=== PATIENT | female | born 1975 | race Caucasian/White ===

== ENCOUNTER 2016-11-22 21:48 | Emergency (ER) | payer BC, OTHER ==
[~2016-11-22] VITALS: Ht 160 cm; Wt 80.0 kg
[2016-11-22 21:58] VITALS: BP 138/74; PULSE 96; RESP 16; TEMP 98.1; O2SAT 96
[2016-11-22 22:35] LABS: AUTOMATED NEUTROPHIL # 3.9 TH/MM3 (1.8-7.7); BASOPHIL % 0.6 % (0.0-2.0); EOSINOPHIL # 0.1 TH/MM3 (0-0.4); EOSINOPHIL % 1.5 % (0.0-4.0); HEMATOCRIT 38.8 % (35.0-46.0); HEMO FLAGS DIFF FINAL; LYMPH % 33.1 % (9.0-44.0); LYMPHOCYTE # 2.2 TH/MM3 (1.0-4.8); MEAN CELL VOLUME 87.8 FL (80.0-100.0); MEAN CORPUSCULAR HEMOGLOBIN 29.1 PG (27.0-34.0); MEAN CORPUSCULAR HGB CONC 33.1 % (32.0-36.0); MONO % 4.9 % (0.0-8.0); NEUT % 59.9 % (16.0-70.0); PLATELET COUNT 228 TH/MM3 (150-450); RED BLOOD COUNT 4.42 MIL/MM3 (4.00-5.30); WHITE BLOOD COUNT 6.5 TH/MM3 (4.0-11.0)
[2016-11-22 22:51] LABS: ALT (GPT) 29 U/L (10-53); ANION GAP 8 MEQ/L (5-15); AST (GOT) 22 U/L (15-37); BICARBONATE 23.8 MEQ/L (21.0-32.0); BLOOD UREA NITROGEN 9 MG/DL (7-18); CHLORIDE 106 MEQ/L (98-107); GLOMERULAR FILTRATION RATE 79 ML/MIN (>89); SODIUM (NA) 138 MEQ/L (136-145)
[2016-11-22 22:52] LABS: ALKALINE PHOSPHATASE 52 U/L (45-117); TOTAL BILIRUBIN ADULT 0.3 MG/DL (0.2-1.0)
[2016-11-22 23:15] LABS: AMPHETAMINE, URINE NEG (NEG); BARBITURATES, URINE NEG (NEG); COCAINE, URINE NEG (NEG)
[2016-11-23] MEDS ORDERED: LORazepam 2 MG/ML VIAL IV PUSH PRN ×4
[2016-11-23] MEDS ORDERED: LORazepam 2 MG TAB PO PRN
[2016-11-23] MEDS ORDERED: LORazepam 1 MG TAB PO PRN
[2016-11-23] MEDS ORDERED: IOHEXOL 350 MG/ML 10 ML VIAL (for RAD DIAG) IV ONE (00:30)
--- NOTE | 2016-11-23 00:44 | PD ---
HPI Chief Complaint: Psychiatric Symptoms Time Seen by Provider: 22:49 Travel History International Travel<30 days: No Contact w/Intl Traveler<30days: No Traveled to known affect area: No History of Present Illness HPI Patient is a 41-year-old female presents on Araujo act. According to the Araujo act the patient's roommate noticed that the patient had a cord around her neck and was threatening to hang herself. Unfortunately was called and she was placed under Araujo act. According to the patient she states that her roommate/ girlfriend is bipolar and that she's crazy" the patient is fairly poor insight as to why she is here in the first place. She states that she was not going to harm herself. She states she has a history of chronic pain and rather than take pain medicine she likes to drink. She is visibly intoxicated tonight. She has no physical complaints currently. Denies any chest pain neck pain neck pain headache abdominal pain nausea vomiting or diarrhea. PFSH Past Medical History Anxiety: Yes Depression: Yes Diabetes: No Diminished Hearing: No Psychiatric: Yes (PTSD, ANXIETY D/O, PANIC ATTACKS.) Seizures: No LMP: 11/21/16 : 2 Para: 0 Miscarriage: 2 Ovarian Cysts: Yes Social History Alcohol Use: Yes (INTOXICATED TONIGHT 11/05/15) Tobacco Use: Yes Substance Use: Yes (MARIJUANA) Allergies-Medications (Allergen,Severity, Reaction): Coded Allergies: Codeine (Verified Allergy, Intermediate, 10/01/15) Reported Meds & Prescriptions Reported Meds & Active Scripts Active No Active Prescriptions or Reported Medications Review of Systems Except as stated in HPI: all other systems reviewed are Neg Physical Exam Narrative GENERAL: Well-developed well-nourished no apparent distress, visibly intoxicated. SKIN: Patient has what appears to be a very small bruise in the anterior part of her neck could be consistent with a ligature ashley however is nonspecific. HEAD: Atraumatic. Normocephalic. EYES: Pupils equal and round. No scleral icterus. No injection or drainage. ENT: No nasal bleeding or discharge. Mucous membranes pink and moist. NECK: Trachea midline. No JVD. CARDIOVASCULAR: Regular rate and rhythm. No murmur appreciated. RESPIRATORY: No accessory muscle use. Clear to auscultation. Breath sounds equal bilaterally. GASTROINTESTINAL: Abdomen soft, non-tender, nondistended. Hepatic and splenic margins not palpable. MUSCULOSKELETAL: No obvious deformities. No clubbing. No cyanosis. No edema. NEUROLOGICAL: Awake and alert. No obvious cranial nerve deficits. Motor grossly within normal limits. Normal speech. PSYCHIATRIC: Appears intoxicated, normal mood, angry affect. Poor insight and poor judgment. Denies suicidal ideation. Data Data Last Documented VS Vital Signs Date Time Temp Pulse Resp B/P Pulse Ox O2 Delivery O2 Flow Rate FiO2 11/22/16 21:58 98.1 96 16 138/74 96 Orders Complete Blood Count With Diff (11/22/16 22:10) Comprehensive Metabolic Panel (11/22/16 22:10) Psych Screen (11/22/16 22:10) Drug Screen, Random Urine (11/22/16 22:10) Salicylates (Aspirin) (11/22/16 22:10) Ed Urine Pregnancytest Poc (11/22/16 22:39) Alcohol (Ethanol) (11/22/16 22:47) Alcohol Withdrawal Asmt-Ciwa ONCE (11/22/16 23:46) Lorazepam (Ativan) (11/23/16 00:00) Lorazepam Inj (Ativan Inj) (11/23/16 00:00) Lorazepam (Ativan) (11/23/16 00:00) Lorazepam Inj (Ativan Inj) (11/23/16 00:00) Lorazepam Inj (Ativan Inj) (11/23/16 00:00) Lorazepam Inj (Ativan Inj) (11/23/16 00:00) Ct Soft Tiss Neck W Iv Cont (11/23/16 ) Iohexol 350 Inj (Omnipaque 350 Inj) (11/23/16 00:30) Labs Laboratory Tests Test 11/22/16 11/22/16 22:20 23:00 White Blood Count 6.5 TH/MM3 Red Blood Count 4.42 MIL/MM3 Hemoglobin 12.9 GM/DL Hematocrit 38.8 % Mean Corpuscular Volume 87.8 FL Mean Corpuscular Hemoglobin 29.1 PG Mean Corpuscular Hemoglobin 33.1 % Concent Red Cell Distribution Width 14.0 % Platelet Count 228 TH/MM3 Mean Platelet Volume 8.7 FL Neutrophils (%) (Auto) 59.9 % Lymphocytes (%) (Auto) 33.1 % Monocytes (%) (Auto) 4.9 % Eosinophils (%) (Auto) 1.5 % Basophils (%) (Auto) 0.6 % Neutrophils # (Auto) 3.9 TH/MM3 Lymphocytes # (Auto) 2.2 TH/MM3 Monocytes # (Auto) 0.3 TH/MM3 Eosinophils # (Auto) 0.1 TH/MM3 Basophils # (Auto) 0.0 TH/MM3 CBC Comment DIFF FINAL Differential Comment Sodium Level 138 MEQ/L Potassium Level 4.0 MEQ/L Chloride Level 106 MEQ/L Carbon Dioxide Level 23.8 MEQ/L Anion Gap 8 MEQ/L Blood Urea Nitrogen 9 MG/DL Creatinine 0.80 MG/DL Estimat Glomerular Filtration 79 ML/MIN Rate Random Glucose 92 MG/DL Calcium Level 7.9 MG/DL Total Bilirubin 0.3 MG/DL Aspartate Amino Transf 22 U/L (AST/SGOT) Alanine Aminotransferase 29 U/L (ALT/SGPT) Alkaline Phosphatase 52 U/L Total Protein 7.3 GM/DL Albumin 3.9 GM/DL Salicylates Level 2.9 MG/DL Ethyl Alcohol Level 281 MG/DL Urine Opiates Screen NEG Urine Barbiturates Screen NEG Urine Amphetamines Screen NEG Urine Benzodiazepines Screen NEG Urine Cocaine Screen NEG Urine Cannabinoids Screen NEG MDM Medical Decision Making Medical Screen Exam Complete: Yes Emergency Medical Condition: Yes Differential Diagnosis Soft tissue neck injury, strangulation unlikely, asphyxiation unlikely, suicidal ideation, adjustment disorder, alcohol intoxication Narrative Course Patient was roomed in emergency department, she is clearly intoxicated she is redirectable. She does have a small ashley on the anterior part of her neck which could be consistent with a small ligature ashley. CT soft tissue neck was obtained which is within normal limits. She is at this point medically cleared for psychiatric evaluation and disposition. She will protocol has been ordered. She is under Araujo act by law enforcement. Diagnosis Primary Impression: Intentional self-harm by strangulation Additional Impression: Alcohol intoxication Scripts No Active Prescriptions or Reported Meds Condition: Jose Kerr MD November 23, 2016 00:44
--- NOTE | 2016-11-23 00:46 | RADRPT ---
EXAM DATE/TIME: 11/23/2016 00:03 [facility] COMPARISON: No previous studies available for comparison. INDICATIONS : Attempted hanging. IV CONTRAST: 68 ccIV RADIATION DOSE: 18.92 CTDIvol (mGy) MEDICAL HISTORY : None SURGICAL HISTORY : None. ENCOUNTER: Initial ACUITY: 1 day PAIN SCALE: 8/10 LOCATION: neck TECHNIQUE: Volumetric scanning of the neck was performed. Using automated exposure control and adjustment of th e mA and/or kV according to patient size, radiation dose was kept as low as reasonably achievable to obtain optimal diagnostic quality images. FINDINGS: NASOPHARYNX: The nasopharyngeal airway has a normal configuration. No mucosal thickening or mass is seen. OROPHARYNX: The intrinsic muscles of the tongue are symmetric. The tonsillar pillars are intact. The prevertebr al soft tissues are not thickened. LARYNX: The supraglottic, glottic, and infraglottic structures are intact. PARAPHARYNGEAL: The parapharyngeal space is intact. SALIVARY GLANDS: The parotid and submandibular glands are intact. LYMPH NODES: No enlarged or necrotic-appearing nodes. THYROID: Homogeneous enhancement without evidence of nodule. BONES: Unremarkable. CONCLUSION: 1. Unremarkable CT scan of the neck. No masses are identified. Antolin Conway MD on November 23, 2016 at 0:42 Board Certified Radiologist. This report was verified electronically.
[2016-11-23 02:00] VITALS: BP 105/50; PULSE 97; RESP 18; O2SAT 95
[2016-11-23 06:19] VITALS: BP 120/66; PULSE 79; RESP 18; O2SAT 97
[2016-11-23] MEDS ORDERED: ACETAMINOPHEN 325 MG TAB PO ONE (08:00)
[2016-11-23 08:52] VITALS: BP 122/66; PULSE 79; RESP 18; O2SAT 97
--- NOTE | 2016-11-23 12:05 | PD.CONS ---
Provisional Diagnosis Admission Date [place] I. Alcohol induced disorder, alcohol use disorder, PTSD, Anxiety [place] II. Borderline personality disorder [place] III. Shoulder Pain History of Present Illness Service Psychiatry Consult Requested By Primary Care Physician Unknown HPI The patient is a 41-year-old woman, domicile with her friend in [place], unemployed, with a history of PTSD, borderline personality disorder, alcohol use disorder, psychiatric hospitalizations, previous suicidal attempts, active outpatient psychiatric care with Dr. Becerril, she is on clonazepam 0.5 g twice a day Effexor 75 mg, no significant medical history, who presents on Araujo act. According to the Araujo act the patient's roommate noticed that the patient had a cord around her neck and was threatening to hang herself. As per ER notes "Unfortunately was called and she was placed under Arauoj act. According to the patient she states that her roommate/girlfriend is bipolar and that she's crazy" the patient is fairly poor insight as to why she is here in the first place. She states that she was not going to harm herself. She states she has a history of chronic pain and rather than take pain medicine she likes to drink. She is visibly intoxicated tonight. She has no physical complaints currently. Denies any chest pain neck pain neck pain headache abdominal pain nausea vomiting or diarrhea" on psychiatric evaluation today patient is calm, cooperative and pleasant. She denies depressive symptoms, she denies anxiety, she is clinically sober, denies past and course in the pathology of jean, denies perceptual disturbances. She denies suicidal or homicidal ideation, she denies visual and auditory hallucinations. Patient is oriented 3, no attention deficit observed. No agitation, no aggressive behavior, no paranoia, no delusions. Collateral information from girlfriend was obtained, she says that she was mostly concerned due to the level of intoxication of the patient. Doesn't have any concern taking the patient back home once psychiatrically cleared. Review of Systems Constitutional: DENIES: Diaphoretic episodes, Fatigue, Fever, Weight gain, Weight loss, Chills, Dizziness, Change in appetite, Night Sweats Endocrine: DENIES: Abnorml menstrual pattern, Heat/cold intolerance, Polydipsia , Polyuria, Polyphagia Ears, nose, mouth, throat: DENIES: Tinnitus, Hearing loss, Vertigo, Nasal discharge, Oral lesions, Throat pain, Hoarseness, Ear Pain, Running Nose, Epistaxis, Sinus Pain, Toothache, Odynophagia Respiratory: DENIES: Apneas, Cough, Snoring, Wheezing, Hemoptysis, Sputum production, Shortness of breath Cardiovascular: DENIES: Chest pain, Palpitations, Syncope, Dyspnea on Exertion , PND, Lower Extremity Edema, Orthopnea, Claudication Gastrointestinal: DENIES: Abdominal pain, Black stools, Bloody stools, Constipation, Diarrhea, Nausea, Vomiting, Difficulty Swallowing, Anorexia Genitourinary: DENIES: Abnormal vaginal bleeding, Dysmenorrhea, Dyspareunia, Sexual dysfunction, Urinary frequency, Urinary incontinence, Urgency, Hematuria , Dysuria, Nocturia, Vaginal discharge Musculoskeletal: DENIES: Joint pain, Muscle aches, Stiffness, Joint Swelling, Back pain, Neck pain Integumentary: DENIES: Abnormal pigmentation, Pruritus, Rash, Nail changes, Breast masses, Breast skin changes, Nipple discharge Hematologic/lymphatic: DENIES: Bruising, Lymphadenopathy Immunologic/allergic: DENIES: Eczema, Urticaria Neurologic: DENIES: Abnormal gait, Headache, Localized weakness, Paresthesias, Seizures, Speech Problems, Tremor, Poor Balance Psychiatric: DENIES: Anxiety, Confusion, Mood changes, Depression, Hallucinations, Agitation, Suicidal Ideation, Homicidal Ideation, Delusions Past Family Social History Coded Allergies: Codeine (Verified Allergy, Intermediate, 10/01/15) No Active Prescriptions or Reported Meds Family History Patient has a brother with bipolar disorder Social History Patient was born and raised in [place], is important [place] with girlfriend, employed, highest level of education is 2 years college Patient's Strengths (min. 2) Employed Physical Exam A physical exam, no EPS, no tremors, no withdrawal, no stiffness, present Vital Signs Vital Signs Date Time Temp Pulse Resp B/P Pulse Ox O2 Delivery O2 Flow Rate FiO2 11/23/16 08:52 79 18 122/66 97 Room Air 11/22/16 21:58 98.1 Lab Results BAL 281 Mental Status Examination Appearance Patient appears to the age, good hygiene, [facility], calm and cooperative Speech: Unremarkable Orientation: x3 Memory: Unremarkable Thought Content: Unremarkable Hallucination Type: None Suicidal Ideation: No Previous Suicide Attempts: No Homicidal Ideation: No Insight: Good Affect: Good Mood: Appropriate Motor Activity: Normal gait Assessment & Plan Problem List: (1) Alcohol intoxication ICD Code: F10.129 (2) Alcohol abuse with alcohol-induced mood disorder Assessment & Plan: At the moment of this evaluation the patient was not presenting any evidence of depression, anxiety, jean or psychosis. Patient denies suicidal and homicidal ideation, she denies visual and auditory hallucinations. Patient is no clinical disorder, no withdrawal present. She does not qualify for inpatient psychiatric admission at this moment. Araujo act will be lifted. ICD Code: F10.14 Assessment & Plan Estimated LOS: Wilson Ballesteros MD November 23, 2016 12:05
== END 2016-11-23 11:09 | disposition home or self-care (01) ==
LOC: NEPD 21:48 → NEPJ 11-23 11:09
DX: F10.129 Alcohol abuse with intoxication, unspecified (principal); F10.14 Alcohol abuse with alcohol-induced mood disorder; F43.10 Post-traumatic stress disorder, unspecified; F41.9 Anxiety disorder, unspecified; Z72.0 Tobacco use; Z86.59 Personal history of other mental and behavioral disorders; X83.8XXA Intentional self-harm by other specified means, initial encounter
CPT/HCPCS: 70491; 80053; 80307; 84703; 85025; 99285; Q9967

== ENCOUNTER 2017-01-01 23:21 | Emergency (ER) | payer SELFPAY ==
[~2017-01-01] VITALS: Ht 162.6 cm; Wt 80.0 kg
[2017-01-01 23:25] VITALS: BP 109/59; PULSE 99; RESP 18; TEMP 98.4; O2SAT 93
[2017-01-01] MEDS ORDERED: SODIUM CHLOR 0.9% 1000 ML INJ 1,000 ML IV ONE (23:30)
[2017-01-01] MEDS ORDERED: THIAMINE INJ 100 MG in SODIUM CHLORIDE 0.9% INJ 100 ML IV ONE (23:30)
[2017-01-01 23:53] LABS: AUTOMATED NEUTROPHIL # 3.4 TH/MM3 (1.8-7.7); BASOPHIL % 0.7 % (0.0-2.0); EOSINOPHIL # 0.1 TH/MM3 (0-0.4); HEMATOCRIT 35.5 % (35.0-46.0); HEMO FLAGS DIFF FINAL; LYMPH % 30.2 % (9.0-44.0); LYMPHOCYTE # 1.6 TH/MM3 (1.0-4.8); MEAN CELL VOLUME 88.6 FL (80.0-100.0); MEAN CORPUSCULAR HEMOGLOBIN 29.3 PG (27.0-34.0); MEAN CORPUSCULAR HGB CONC 33.1 % (32.0-36.0); MONO % 4.7 % (0.0-8.0); NEUT % 63.4 % (16.0-70.0); PLATELET COUNT 189 TH/MM3 (150-450); RED BLOOD COUNT 4.01 MIL/MM3 (4.00-5.30); RED CELL DISTRIBUTION WIDTH 13.5 % (11.6-17.2); WHITE BLOOD COUNT 5.3 TH/MM3 (4.0-11.0)
[2017-01-02] MEDS ORDERED: NALOXONE HCL 2 MG/2 ML VIAL ONE (00:05)
[2017-01-02 00:08] LABS: APTT (PATIENT) 25.9 SEC (24.3-30.1); PROTHROMBIN TIME - PATIENT 10.6 SEC (9.8-11.6)
[2017-01-02] MEDS ORDERED: NALOXONE HCL 0.4 MG/ML AMP IV PUSH ONE ×3 (00:15)
[2017-01-02 00:17] VITALS: BP 106/58; PULSE 89; RESP 16; O2SAT 95
[2017-01-02 00:18] LABS: BICARBONATE 24.2 MEQ/L (21.0-32.0); CALCIUM-PROTEIN CORRECTED 7.8 MG/DL (8.5-10.1); POTASSIUM 3.3 MEQ/L (3.5-5.1); TOTAL BILIRUBIN ADULT 0.3 MG/DL (0.2-1.0)
--- NOTE | 2017-01-02 00:19 | RADRPT ---
EXAM DATE/TIME: 01/01/2017 23:43 [facility] COMPARISON: No previous studies available for comparison. INDICATIONS : Unresponsiveness. MEDICAL HISTORY : None. SURGICAL HISTORY : None. ENCOUNTER: Initial ACUITY: 1 day PAIN SCORE: Non-responsive. LOCATION: Bilateral chest FINDINGS: There is mild haziness to the left lung probably artifactual related to the patient's large breast ov erlapping at this site asymmetrical compared to the right. Focal consolidation is not seen. Heart and mediastinum are unremarkable for technique. CONCLUSION: No acute cardiopulmonary disease. Sammy Sue MD on January 02, 2017 at 0:17 Board Certified Radiologist. This report was verified electronically.
--- NOTE | 2017-01-02 00:30 | PD ---
HPI Chief Complaint: Alcohol/Drug Intoxication Time Seen by Provider: 23:30 Travel History International Travel<30 days: No Contact w/Intl Traveler<30days: No Traveled to known affect area: No History of Present Illness HPI The patient is a 41 year old female who presents to the [facility] emergency department with a history of being found on the side of the road intoxicated. According to her roommate she had been drinking approximately 12 beers over the last 6 hours. The patient on their arrival was noted to have slurred speech and was crawling on the side of the road. They reported that her blood sugar was noted to be 82. They reported that her initial pulse was in the 130s, however en route it went down to 105. The patient on arrival has a decreased level of consciousness with pinpoint pupils. The patient's O2 saturation on room air is 94%. The patient is not providing any history. The patient is responsive to painful stimulation, however she is otherwise drowsy and not following commands. She is maintaining her airway with a good gag reflex. Review of systems was therefore unable to be obtained in this patient. [facility] Past Medical History Narrative Medical The patient's past medical history is obtained through the electronic medical record and consists of anxiety and depression. Anxiety: Yes Depression: Yes Diabetes: No Diminished Hearing: No Psychiatric: Yes (PTSD, ANXIETY D/O, PANIC ATTACKS.) Seizures: No Tetanus Vaccination: Unknown ?: Unknown : 2 Para: 0 Miscarriage: 2 Ovarian Cysts: Yes Past Surgical History Narrative Surgical The patient's past surgical history is unable to be obtained. Surgical History: Unable to Obtain Social History Alcohol Use: Yes (daily) Tobacco Use: Yes Substance Use: Yes (MARIJUANA) Allergies-Medications (Allergen,Severity, Reaction): Coded Allergies: Codeine (Verified Allergy, Intermediate, 10/01/15) Reported Meds & Prescriptions Reported Meds & Active Scripts Active No Active Prescriptions or Reported Medications Review of Systems ROS Limitations: Intoxication, Poor Historian Neurologic: Positive: Change in Mentation, Slurred Speech Psychiatric: Positive: Substance Abuse Physical Exam Narrative General: The patient is a well-developed well-nourished female in no acute distress, sleeping soundly on arrival. Head and Neck exam: Head is normocephalic atraumatic. Eyes: 2 mm pupils on examination that are reactive to light bilaterally. Nose: Midline septum with pink mucous membranes Mouth: Dentition unremarkable. Moist mucus membranes. Posterior oropharynx is not erythematous. No tonsillar hypertrophy. Uvula midline. Airway patent. Neck: No palpable lymphadenopathy. No nuchal rigidity. No thyromegaly. Cardiovascular: Regular rate and rhythm without murmurs, gallops, or rubs. Lungs: Clear to auscultation bilaterally. No wheezes, rhonchi, or rales. Abdomen: Soft, without tenderness to palpation in all 4 quadrants of the abdomen. No guarding, rebound, or rigidity. Normal bowel sounds are audible. No tenderness on palpation of McBurney's point. Extremities: No clubbing, cyanosis, or edema. 2+ pulses in all 4 extremities. No calf tenderness on palpation. Back: No costovertebral angle tenderness to palpation. Neurologic Exam: The patient is unresponsive to verbal stimulation. The patient is responsive to painful stimulation. The patient has a good gag reflex. Respiratory rate is normal. O2 saturations are 94% on room air and were supplemented with nasal cannula O2. The patient is unable to cooperate with formal neurologic testing. Skin Exam: No rash noted. Intact skin that is warm and dry. Data Data Last Documented VS Vital Signs Date Time Temp Pulse Resp B/P Pulse Ox O2 Delivery O2 Flow Rate FiO2 01/02/17 03:12 79 18 99/59 100 Room Air 01/02/17 01:38 2 01/01/17 23:25 98.4 Orders Complete Blood Count With Diff (01/01/17 23:30) Comprehensive Metabolic Panel (01/01/17 23:30) Prothrombin Time / Inr (Pt) (01/01/17 23:30) Act Partial Throm Time (Ptt) (01/01/17 23:30) Urinalysis - C+S If Indicated (01/01/17 23:30) Chest, Single Ap (01/01/17 23:30) Ct Brain W/O Iv Contrast(Rout) (01/01/17 23:30) Iv Access Insert/Monitor (01/01/17 23:30) Ecg Monitoring (01/01/17 23:30) Oximetry (01/01/17 23:30) Ed Urine Pregnancytest Poc (01/01/17 23:30) Drug Screen, Random Urine (01/01/17 23:30) Alcohol (Ethanol) (01/01/17 23:30) Sodium Chlor 0.9% 1000 Ml Inj (Ns 1000 M (01/01/17 23:30) Thiamine Inj (Thiamine Inj) (01/01/17 23:30) Naloxone Inj (Narcan Inj) (01/02/17 00:05) Naloxone Inj (Narcan Inj) (01/02/17 00:15) Naloxone Inj (Narcan Inj) (01/02/17 00:15) Naloxone Inj (Narcan Inj) (01/02/17 00:15) Potassium Chlor 10 Meq Premix (Kcl 10 Me (01/02/17 01:45) Calcium Gluconate Inj (Calcium Gluconate (01/02/17 01:45) Cath For Specimen (01/02/17 01:35) Labs Laboratory Tests Test 01/01/17 01/02/17 23:35 01:45 White Blood Count 5.3 TH/MM3 Red Blood Count 4.01 MIL/MM3 Hemoglobin 11.8 GM/DL Hematocrit 35.5 % Mean Corpuscular Volume 88.6 FL Mean Corpuscular Hemoglobin 29.3 PG Mean Corpuscular Hemoglobin 33.1 % Concent Red Cell Distribution Width 13.5 % Platelet Count 189 TH/MM3 Mean Platelet Volume 9.2 FL Neutrophils (%) (Auto) 63.4 % Lymphocytes (%) (Auto) 30.2 % Monocytes (%) (Auto) 4.7 % Eosinophils (%) (Auto) 1.0 % Basophils (%) (Auto) 0.7 % Neutrophils # (Auto) 3.4 TH/MM3 Lymphocytes # (Auto) 1.6 TH/MM3 Monocytes # (Auto) 0.2 TH/MM3 Eosinophils # (Auto) 0.1 TH/MM3 Basophils # (Auto) 0.0 TH/MM3 CBC Comment DIFF FINAL Differential Comment Prothrombin Time 10.6 SEC Prothromb Time International 1.0 RATIO Ratio Activated Partial 25.9 SEC Thromboplast Time Sodium Level 143 MEQ/L Potassium Level 3.3 MEQ/L Chloride Level 108 MEQ/L Carbon Dioxide Level 24.2 MEQ/L Anion Gap 11 MEQ/L Blood Urea Nitrogen 8 MG/DL Creatinine 0.79 MG/DL Estimat Glomerular Filtration 81 ML/MIN Rate Random Glucose 103 MG/DL Calcium Level 7.4 MG/DL Protein Corrected Calcium 7.8 MG/DL Total Bilirubin 0.3 MG/DL Aspartate Amino Transf 17 U/L (AST/SGOT) Alanine Aminotransferase 27 U/L (ALT/SGPT) Alkaline Phosphatase 46 U/L Total Protein 6.4 GM/DL Albumin 3.4 GM/DL Ethyl Alcohol Level 197 MG/DL Urine Color LIGHT-YELLOW Urine Turbidity CLEAR Urine pH 5.0 Urine Specific [place] 1.005 Urine Protein NEG mg/dL Urine Glucose (UA) NEG mg/dL Urine Ketones NEG mg/dL Urine Occult Blood NEG Urine Nitrite NEG Urine Bilirubin NEG Urine Urobilinogen LESS THAN 2.0 MG/DL Urine Leukocyte Esterase NEG Urine WBC 1 /hpf Urine Squamous Epithelial <1 /hpf Cells Microscopic Urinalysis Comment CATH-CULT NOT IND Urine Opiates Screen NEG Urine Barbiturates Screen NEG Urine Amphetamines Screen NEG Urine Benzodiazepines Screen NEG Urine Cocaine Screen NEG Urine Cannabinoids Screen NEG MDM Medical Decision Making Medical Screen Exam Complete: Yes Emergency Medical Condition: Yes Medical Record Reviewed: Yes Differential Diagnosis Alcohol intoxication, versus other substance intoxication, versus intracranial abnormality, versus encephalopathy Narrative Course During the course of the patients emergency department visit, the patients history, examination, and differential diagnosis were reviewed with the patient. The patient had IV access obtained and blood work sent for analysis. The patient was placed on a air sampling and monitoring with oximetry and blood pressure monitoring. The patient was initially provided normal saline 1 L IV fluid bolus, thiamine 100 mg IV, Narcan in 3 separate doses of 0.4 mg was administered without any significant response. The patients laboratory studies were reviewed and remarkable for a CBC that is within normal limits, CMP is remarkable for a potassium at 3.3 which was supplemented with KCl 10 mEq over an hour due to her decreased level of consciousness, protein corrected calcium 7.8, therefore calcium gluconate was administered 1 g IV, PT PTT within normal limits, alcohol level CXCVII, urine drug screen is negative, urinalysis is unremarkable. Radiology studies were reviewed and remarkable for chest x-ray that shows no acute abnormality. CT scan of the brain shows no acute abnormality. On repeat evaluation of the patient, the patient was moving all of her extremities, opening her eyes, but becoming more awake and alert and attempted to answer questions. She still had slurred speech. The patient will continue to be monitored. When she becomes more awake and alert, the patient will be discharged home. The patient is resting comfortably and feels better, is alert and in no distress. The patients results and examination findings were discussed with the patient. The repeat examination is unremarkable and benign. The history, exam, diagnostic testing, and current condition do not suggest any significant pathology to warrant further testing, continued ED treatment, admission, or surgical evaluation at this point. The vital signs have been stable. The patient does not have uncontrollable pain, intractable vomiting, or other significant symptoms. The patient's condition is stable and appropriate for discharge. The patient will pursue further outpatient evaluation with a primary care physician or other designated or consulting physician as indicated in the discharge instructions. The patient expressed understanding and was agreeable with this plan. Diagnosis Primary Impression: Alcohol intoxication Referrals: Primary Care Physician 2 days Patient Instructions: Alcohol Intoxication (ED), General Instructions Scripts No Active Prescriptions or Reported Meds Disposition: DISCHARGE HOME Condition: Stable Maya Ríos MD Jan 02, 2017 00:30
--- NOTE | 2017-01-02 00:53 | RADRPT ---
EXAM DATE/TIME: 01/02/2017 00:44 [facility] COMPARISON: CT BRAIN W/O CONTRAST, November 05, 2015, 1:24. INDICATIONS : Altered mental status. ETOH. RADIATION DOSE: 35.65 CTDIvol (mGy) MEDICAL HISTORY : None SURGICAL HISTORY : None. ENCOUNTER: Initial ACUITY: 1 day PAIN SCALE: Non-responsive LOCATION: cranial TECHNIQUE: Multiple contiguous axial images were obtained of the head. Using automated exposure control and adj ustment of the mA and/or kV according to patient size, radiation dose was kept as low as reasonably a chievable to obtain optimal diagnostic quality images. FINDINGS: There is no evidence for intracranial hemorrhage, mass effect, mass lesions, edema, or extra-axial fl uid collections. The visualized bony structures appear intact. The ventricles are normal size for t he patient's age. There are no signs of acute infarction for technique. CONCLUSION: Unremarkable study. Sammy Sue MD on January 02, 2017 at 0:50 Board Certified Radiologist. This report was verified electronically.
[2017-01-02 01:38] VITALS: BP 110/60; PULSE 90; RESP 18; O2SAT 98
[2017-01-02] MEDS ORDERED: CALCIUM GLUCONATE INJ 1 GM in DEXTROSE 5% IN WATER 100ML INJ 100 ML IV ONE ×2 (01:45)
[2017-01-02] MEDS ORDERED: POTASSIUM CHLOR 10 MEQ PREMIX 100 ML IV ONE (01:45)
[2017-01-02 01:58] LABS: BLOOD, URINE NEG (NEG); GLUCOSE,URINE NEG (NEG); KETONE, URINE NEG (NEG); NITRITE,URINE NEG (NEG); SQUAMOUS EPITHELIAL CELL URINE <1 /hpf (0-5); URINE COLOR LIGHT-YELLOW (YELLW/STRAW)
[2017-01-02 02:04] LABS: COMMENT (UR) CATH-CULT NOT IND; CULTURE IF INDICATED CATH CULTURE NOT IND
[2017-01-02 02:05] LABS: AMPHETAMINE, URINE NEG (NEG); BARBITURATES, URINE NEG (NEG); COCAINE, URINE NEG (NEG)
[2017-01-02 03:12] VITALS: BP 99/59; PULSE 79; RESP 18; O2SAT 100
== END 2017-01-02 06:37 | disposition home or self-care (01) ==
LOC: NEPE 23:21 → NEPD 01-02 06:37
DX: F10.129 Alcohol abuse with intoxication, unspecified (principal); F43.10 Post-traumatic stress disorder, unspecified; F41.9 Anxiety disorder, unspecified; Z72.0 Tobacco use; F12.90 Cannabis use, unspecified, uncomplicated
CPT/HCPCS: 70450; 71010; 80053; 80307; 81001; 84703; 85025; 85610; 85730; 96365; 96367; 96375; 99285; J0610; J2310; J3411; J3480; J7030; P9612